=== PATIENT | female | born 1955 | race Caucasian/White ===

== ENCOUNTER 2018-08-18 19:19 | Emergency (ER) | payer OTHER ==
[~2018-08-18] VITALS: Ht 149.9 cm; Wt 59.0 kg
[~2018-08-18 19:19] MED LIST: CIPR500T4 PO; FAMO-96 PO; METR500T PO
[2018-08-18 19:32] VITALS: Ht 149.9 cm; Wt 59.0 kg
--- NOTE | 2018-08-18 21:06 | ERD ---
ER Documentation Chief Complaint Chief Complaint C/O COUGH,ST,RT EAR PAIN X1 MONTH HPI The patient is a 62-year-old female, presenting to the ER because of chronic cough nasal congestion, right ear pain for more than a month. She was seen by her physician who treated her with Augmentin that she completed about 2 weeks ago but did not feel better. She denies fever, chills, neck pain, chest pain, dyspnea, abdominal pain, vomiting, dysuria, diarrhea. She does not smoke nor drink Past medical history: Cholelithiasis Past surgical history: ROS All systems reviewed and are negative except as per history of present illness. Medications Home Meds Active Scripts Loratadine/Pseudoephedrine (CLARITIN-D 24 HOUR TABLET) 1 Each Tab.er.24h, 1 TAB PO DAILY, #15 TAB Prov:ELPIDIO MACHUCA MD 08/18/18 Fluticasone Propionate (Flonase Allergy Relief) 9.9 Ml [place].susp, 2 SPRAY NASAL DAILY, #1 BOTTLE TO EACH NOSTRIL Prov:ELPIDIO MACHUCA MD 08/18/18 Benzonatate* (Tessalon Perle*) 100 Mg Capsule, 100 MG PO TID, #15 CAP Prov:ELPIDIO MACHUCA MD 08/18/18 Famotidine* (Pepcid*) 20 Mg Tablet, 20 MG PO BID, #60 TAB Prov:ANA HERNANDEZ 06/10/18 Metronidazole* (Flagyl*) 500 Mg Tablet, 500 MG PO Q8 for 10 Days, #30 TAB Prov:ANA HERNANDEZ 06/10/18 Ciprofloxacin Hcl* (Ciprofloxacin Hcl*) 500 Mg Tablet, 500 MG PO BID@06,18 for 10 Days, #20 TAB Prov:ANA HERNANDEZ 06/10/18 Allergies Allergies: Coded Allergies: No Known Allergy (Unverified , 06/07/18) PMhx/Soc History of Surgery: Yes () Anesthesia Reaction: No Hx Neurological Disorder: No Hx Respiratory Disorders: No Hx Cardiac Disorders: No Hx Psychiatric Problems: No Hx Miscellaneous Medical Probl: No Hx Alcohol Use: No Hx Substance Use: No Hx Tobacco Use: No Physical Exam Vitals Vital Signs Date Temp Pulse Resp B/P (MAP) Pulse Ox O2 O2 Flow FiO2 Time Delivery Rate 08/18/18 99.1 82 16 134/76 99 Room Air 22:04 (95) 08/18/18 99.2 21 150/78 96 21:13 (102) 08/18/18 99.2 88 21 150/78 96 19:32 (102) Physical Exam Const: No acute distress. Head: Atraumatic. Eyes: Normal Conjunctiva. ENT: Normal External Ears, Nose and Mouth. Bilateral tympanic membranes and oropharynx are within normal limit, no facial sinus tenderness Neck: Full range of motion. No meningismus. Resp: Clear to auscultation bilaterally. Cardio: Regular rate and rhythm. Abd: Soft, non distended, normal bowel sounds, non tender. Skin: No petechiae or rashes. Back: No midline or flank tenderness. Ext: No cyanosis, or edema. Neur: Awake and alert. No focal deficit Psych: Normal Mood and Affect. Results 24 hrs Current Medications Medications Dose Sig/[place] Start Time Status Last (Trade) Ordered Route PRN Stop Time Admin Dose Reason Admin Ipratropium 0.5 mg ONCE STAT 08/18/18 Cancel [place] NEB 21:40 (Atrovent 08/18/18 21:41 0.02% (Neb)) 1.25 mg ONCE STAT 08/18/18 Cancel Levalbuterol INH 21:40 (Xopenex 08/18/18 21:41 Neb) Procedures/MDM MEDICAL MAKING DECISION: The patient is a 62-year-old female, presenting with chronic cough, probable acute allergic rhinitis, rt ear otalgia. She is stable for outpatient follow-up The differential diagnoses considered include but are not limited to asthma, reactive airway disease, postnasal drip, GERD Departure Diagnosis: Primary Impression: Otalgia of right ear Additional Impression: Allergic rhinitis Condition: Good Comments She was discharged with Tessalon, Flonase, Claritin-D 24 hours I discussed the findings with the patient. I advised the patient to follow-up with the primary physician in about 2-3 days, sooner if needed and return if any concern. Disclaimer: Inadvertent spelling and grammatical errors are likely due to EHR/dictation software use and do not reflect on the overall quality of patient care. Also, please note that the electronic time recorded on this note does not necessarily reflect the actual time of the patient encounter. ELPIDIO MACHUCA MD Aug 18, 2018 21:06
[2018-08-18] MEDS ORDERED: BENZ-6 PO (21:38)
[2018-08-18] MEDS ORDERED: FLUT9.9S NASAL (21:38)
[2018-08-18] MEDS ORDERED: LORA-777 PO (21:39)
[2018-08-18] MEDS ORDERED: IPRATROPIUM (NEB) 0.5 MG/2.5 ML AMP NEB STA (21:40)
[2018-08-18] MEDS ORDERED: LEVALBUTEROL (NEB) 1.25 MG/0.5 ML AMP INH STA (21:40)
[2018-08-18 22:04] VITALS: BP 134/76; PULSE 82; RESP 16
== END 2018-08-18 22:20 | disposition home or self-care (01) ==
LOC: E/R 19:19
DX: H92.01 Otalgia, right ear (principal); J30.9 Allergic rhinitis, unspecified
CPT/HCPCS: 76705; Z7502; 99283

== ENCOUNTER 2018-10-04 21:07 | Emergency (ER) | payer OTHER ==
[~2018-10-04] VITALS: Wt 58.6 kg
[~2018-10-04 21:07] MED LIST changes: +BENZ-6 PO; +FLUT9.9S NASAL; +LORA-777 PO
[2018-10-04 21:16] VITALS: BP 171/90; PULSE 90; RESP 22
[2018-10-04] MEDS ORDERED: IBUP-1542 PO (23:07)
[2018-10-04] MEDS ORDERED: FLUT9.9S NASAL (23:07)
[2018-10-04] MEDS ORDERED: PHEN177S43 MT (23:07)
[2018-10-04] MEDS ORDERED: BENZ200C68 PO (23:07)
[2018-10-04] MEDS ORDERED: POLY10DR19 BOTH EYES (23:07)
--- NOTE | 2018-10-05 03:31 | ERD ---
ER Documentation Chief Complaint Chief Complaint throat pain, increased eye discharge x3d HPI 62-year-old female presents to the emergency department with complaints of intermittent ear pain for the past 3 days. She took [id number]-stebwwy medication withoutSignificant relief. She is also had bilateral eye discharge and a dry cough. Symptoms are mild in severity. She denies any fevers or chills or abdominal pain or other symptoms at this time. ROS All systems reviewed and are negative except as per history of present illness. Medications Home Meds Active Scripts Ibuprofen* (Motrin*) 600 Mg Tab, 600 MG PO Q6, #30 TAB Prov:LANA MANE PA-C 10/04/18 Phenol* (Chloraseptic* [place]) 177 Ml [place].pump, 2 SPRAY MT Q2H PRN for SORE THROAT, #1 BOTTLE Prov:LANA MAEN PA-C 10/04/18 Fluticasone Propionate (Flonase Allergy Relief) 9.9 Ml [place].susp, 1 SPRAY NASAL BID, #1 BOTTLE TO EACH NOSTRIL Prov:LANA MANE PA-C 10/04/18 Benzonatate* (Benzonatate*) 200 Mg Capsule, 200 MG PO TID PRN for COUGH, #15 CAP Prov:LANA MANE PA-C 10/04/18 Polymyxin B Sulfate-TMP* (Polymyxin B-TMP Eye Drops*) 10 Ml Drops, 1 DROP BOTH EYES QID for 7 Days, #1 BOTTLE Prov:LANA MANE PA-C 10/04/18 Loratadine/Pseudoephedrine (CLARITIN-D 24 HOUR TABLET) 1 Each Tab.er.24h, 1 TAB PO DAILY, #15 TAB Prov:ELPIDIO MACHUCA MD 08/18/18 Fluticasone Propionate (Flonase Allergy Relief) 9.9 Ml [place].susp, 2 SPRAY NASAL DAILY, #1 BOTTLE TO EACH NOSTRIL Prov:ELPIDIO MACHUCA MD 08/18/18 Benzonatate* (Tessalon Perle*) 100 Mg Capsule, 100 MG PO TID, #15 CAP Prov:ELPIDIO MACHUCA MD 08/18/18 Famotidine* (Pepcid*) 20 Mg Tablet, 20 MG PO BID, #60 TAB Prov:ANA HERNANDEZ 06/10/18 Metronidazole* (Flagyl*) 500 Mg Tablet, 500 MG PO Q8 for 10 Days, #30 TAB Prov:ANA HERNANDEZ 06/10/18 Ciprofloxacin Hcl* (Ciprofloxacin Hcl*) 500 Mg Tablet, 500 MG PO BID@06,18 for 10 Days, #20 TAB Prov:ANA HERNANDEZ 06/10/18 Allergies Allergies: Coded Allergies: No Known Allergy (Unverified , 06/07/18) PMhx/Soc History of Surgery: Yes () Anesthesia Reaction: No Hx Neurological Disorder: No Hx Respiratory Disorders: No Hx Cardiac Disorders: No Hx Psychiatric Problems: No Hx Miscellaneous Medical Probl: No Hx Alcohol Use: No Hx Substance Use: No Hx Tobacco Use: No Smoking Status: Never smoker FmHx Family History: No diabetes Physical Exam Vitals Vital Signs Date Temp Pulse Resp B/P (MAP) Pulse Ox O2 O2 Flow FiO2 Time Delivery Rate 10/04/18 99.4 90 22 171/90 97 21:16 (117) Physical Exam Const: No acute distress Head: Atraumatic Eyes: Mild conjunctival injection. Dried discharge noted to the eyelashes bilaterally. Extraocular movements intact bilaterally. ENT: Normal External Ears, Nose and Mouth. Tympanic membranes are normal in appearance bilaterally. Posterior pharynx is clear. Uvula is midline. Airway is patent. Nares are congested. Neck: Full range of motion. No meningismus. Resp: Clear to auscultation bilaterally Cardio: Regular rate and rhythm, no murmurs Abd: Soft, non tender, non distended. Normal bowel sounds Skin: No petechiae or rashes Ext: No cyanosis, or edema Neur: Awake and alert Psych: Normal Mood and Affect Procedures/MDM 62-year-old female presents to the emergency department with signs and symptoms most consistent with acute URI, likely viral etiology as well as acute c onjunctivitis, likely bacterial etiology. No evidence of preseptal cellulitis or periorbital cellulitis. Patient is nontoxic and afebrile and well-appearing and she is appropriate for discharge and further outpatient management with prescriptions. History and physical and other data is not consistent with emergent process such as pneumonia, CHF, anaphylaxis, severe RAD or PE. patient was given strict return precautions prior to discharge and she was in agreement. Patient's blood pressure was elevated (>120/80) but appears stable without evidence of hypertension emergency or urgency. The patient is to follow-up and pursue outpatient monitoring and therapy with their primary care physician within 1 week and return immediately if they have any new, worsening, or concerning symptoms. Disclaimer: Inadvertent spelling and grammatical errors are likely due to EHR/dictation software use and do not reflect on the overall quality of patient care. Also, please note that the electronic time recorded on this note does not necessarily reflect the actual time of the patient encounter. Departure Diagnosis: Primary Impression: Common cold Additional Impression: Conjunctivitis Condition: Fair Patient Instructions: Adult Self-Care for Colds, Conjunctivitis Caused by Inf ection Additional Instructions: Llame al doctor MAANA y kofi crista ROSEANNA PARA DENTRO DE 1-2 HERNANDEZ.Dgale a la secretaria que nosotros le instruimos hacer esta roseanna.Avise o llame si ramirez condicin se empeora antes de la roseanna. Regresa aqui si peor o no mejor. LANA MANE PA-C October 05, 2018 03:31
== END 2018-10-04 23:39 | disposition home or self-care (01) ==
LOC: FTE 21:07
DX: H10.9 Unspecified conjunctivitis (principal); J00 Acute nasopharyngitis [common cold]
CPT/HCPCS: 99283

== ENCOUNTER 2018-11-08 11:56 | Inpatient (IN) | payer OTHER ==
[~2018-11-08] VITALS: Ht 157.5 cm; Wt 57.0 kg
[~2018-11-08 11:56] MED LIST changes: +BENZ200C68 PO; +IBUP-1542 PO; +PHEN177S43 MT; +POLY10DR19 BOTH EYES
[2018-11-08 12:36] VITALS: Ht 157.5 cm; Wt 57.0 kg
[2018-11-08] MEDS ORDERED: ONDANSETRON 4 MG INJ IV STA (12:50)
[2018-11-08] MEDS ORDERED: SODIUM CHLORIDE 0.9% 1L BAG IV* STA (12:50)
[2018-11-08] MEDS ORDERED: IBUPROFEN 600 MG TAB PO ONE (13:00)
--- NOTE | 2018-11-08 13:07 | ERD ---
ER Documentation Chief Complaint Chief Complaint gallbladder sx 11/02/2018, now w fever, chills, dizziness HPI This is a 62-year-old woman status post cholecystectomy about a week ago presents with fever and chills today, feels a bit dizzy and generally weak. She denies cough or abdominal pain, no chest pain, no dysuria, no vomiting or diarrhea, no blood per rectum or melena. ROS All systems reviewed and are negative except as per history of present illness. Medications Home Meds Discontinued Scripts Ibuprofen* (Motrin*) 600 Mg Tab, 600 MG PO Q6, #30 TAB Prov:LANA MANE PA-C 10/04/18 Phenol* (Chloraseptic* [place]) 177 Ml [place].pump, 2 SPRAY MT Q2H PRN for SORE THROAT, #1 BOTTLE Prov:LANA MANE PA-C 10/04/18 Fluticasone Propionate (Flonase Allergy Relief) 9.9 Ml [place].susp, 1 SPRAY NASAL BID, #1 BOTTLE TO EACH NOSTRIL Prov:LANA MANE PA-C 10/04/18 Benzonatate* (Benzonatate*) 200 Mg Capsule, 200 MG PO TID PRN for COUGH, #15 CAP Prov:LANA MANE PA-C 10/04/18 Polymyxin B Sulfate-TMP* (Polymyxin B-TMP Eye Drops*) 10 Ml Drops, 1 DROP BOTH E YES QID for 7 Days, #1 BOTTLE Prov:LANA MANE PA-C 10/04/18 Loratadine/Pseudoephedrine (CLARITIN-D 24 HOUR TABLET) 1 Each Tab.er.24h, 1 TAB PO DAILY, #15 TAB Prov:ELPIDIO MACHUCA MD 08/18/18 Fluticasone Propionate (Flonase Allergy Relief) 9.9 Ml [place].susp, 2 SPRAY NASAL DAILY, #1 BOTTLE TO EACH NOSTRIL Prov:ELPIDIO MACHUCA MD 08/18/18 Benzonatate* (Tessalon Perle*) 100 Mg Capsule, 100 MG PO TID, #15 CAP Prov:ELPIDIO MACHUCA MD 08/18/18 Famotidine* (Pepcid*) 20 Mg Tablet, 20 MG PO BID, #60 TAB Prov:ANA HERNANDEZ 06/10/18 Metronidazole* (Flagyl*) 500 Mg Tablet, 500 MG PO Q8 for 10 Days, #30 TAB Prov:ANA HERNANDEZ 06/10/18 Ciprofloxacin Hcl* (Ciprofloxacin Hcl*) 500 Mg Tablet, 500 MG PO BID@06,18 for 10 Days, #20 TAB Prov:ANA HERNANDEZ 06/10/18 Allergies Allergies: Coded Allergies: No Known Allergy (Unverified , 11/08/18) PMhx/Soc HTN History of Surgery: Yes () Anesthesia Reaction: No Hx Neurological Disorder: No Hx Respiratory Disorders: No Hx Cardiac Disorders: No Hx Psychiatric Problems: No Hx Miscellaneous Medical Probl: Yes (GALL STONES) Hx Alcohol Use: No Hx Substance Use: No Hx Tobacco Use: No FmHx Family History: No diabetes Physical Exam Vitals Vital Signs Date Temp Pulse Resp B/P (MAP) Pulse Ox O2 O2 Flow FiO2 Time Delivery Rate 11/08/18 98.4 92 20 112/53 96 Room Air 15:49 (72) 11/08/18 99.3 95 20 105/61 98 Room Air 14:41 (76) 11/08/18 97 18 115/68 95 Room Air 14:05 (84) 11/08/18 100.1 13:43 11/08/18 101.5 13:12 11/08/18 101.5 120 20 116/62 93 12:36 (80) Physical Exam GENERAL: Well-developed, well-nourished, well-hydrated, febrile HEENT: Moist mucous membranes, pink conjunctiva, no cervical spine tenderness or step-off deformities, no goiter, no jaundice or icterus, extraocular movements intact without pain. No submandibular induration, and no pharyngeal erythema NEURO: Alert and oriented 3, cranial nerves II through XII intact bilaterally, pupils equal round reactive to light, no focal deficits or facial asymmetry, sensation intact distally Strength 5/5 in upper and lower extremities bilaterally CARDIAC: Tachycardic no murmurs rubs or gallops LUNGS: Clear bilaterally no wheezing crackles or stridor ABDOMEN: Soft nontender, no guarding, no rigidity, no rebound, no psoas sign no obturator sign, CHARLENE drain is in place there is no surrounding soft tissue erythema or purulent discharge around the drain site SKIN: Warm and dry to touch, no abrasions, contusions, or hematomas, no lacerations, no ecchymosis, no target lesions, and without ulcers Result Diagram: 11/08/18 1302 11/08/18 1302 Results 24 hrs Laboratory Tests Test 11/08/18 12:59 11/08/18 13:02 11/08/18 13:04 11/08/18 15:49 Free Thyroxine 1.63 ng/dl White Blood Count 17.9 10^3/ul Red Blood Count 4.61 10^6/ul Hemoglobin 13.4 g/dl Hematocrit 38.3 % Mean Corpuscular 83.1 fl Volume Mean Corpuscular 29.1 pg Hemoglobin Mean Corpuscular 35.0 g/dl Hemoglobin Concent Red Cell Distribution 13.1 % Width Platelet Count 221 10^3/UL Mean Platelet Volume 9.7 fl Immature Granulocytes 0.400 % % Neutrophils % 91.7 % Lymphocytes % 3.7 % Monocytes % 4.0 % Eosinophils % 0.0 % Basophils % 0.2 % Nucleated Red Blood 0.0 /100WBC Cells % Immature Granulocytes 0.070 10^3/ul # Neutrophils # 16.4 10^3/ul Lymphocytes # 0.7 10^3/ul Monocytes # 0.7 10^3/ul Eosinophils # 0.0 10^3/ul Basophils # 0.0 10^3/ul Nucleated Red Blood 0.0 10^3/ul Cells # Prothrombin Time 12.8 Sec Prothrombin Time 1.0 Ratio INR International 0.95 Normalized Ratio Activated 29.2 Sec Partial Thromboplast Time Urine Color YELLOW Urine Clarity CLEAR Urine pH 6.0 Urine Specific 1.024 [place] Urine Ketones NEGATIVE mg/dL Urine Nitrite NEGATIVE mg/dL Urine Bilirubin NEGATIVE mg/dL Urine Urobilinogen 1+ mg/dL Urine Leukocyte TRACE [place]/ul Esterase Urine Microscopic RBC 5 /HPF Urine Microscopic WBC 1 /HPF Urine Squamous FEW /HPF Epithelial Cells Urine Bacteria FEW /HPF Urine Mucus FEW /HPF Urine Hemoglobin 1+ mg/dL Urine Glucose NEGATIVE mg/dL Urine Total Protein NEGATIVE mg/dl Sodium Level 137 mmol/L Potassium Level 4.1 mmol/L Chloride Level 102 mmol/L Carbon Dioxide Level 22 mmol/L Anion Gap 13 Blood Urea Nitrogen 16 mg/dl Creatinine 0.71 mg/dl Est Glomerular > 60 mL/min Filtrat Rate mL/min Glucose Level 139 mg/dl Calcium Level 9.7 mg/dl Total Bilirubin 0.9 mg/dl Direct Bilirubin 0.00 mg/dl Indirect Bilirubin 0.9 mg/dl Aspartate Amino 43 IU/L Transf (AST/SGOT) Alanine 75 IU/L Aminotransferase (ALT /SGPT) Alkaline Phosphatase 145 IU/L Troponin I < 0.012 ng/ml Total Protein 8.0 g/dl Albumin 4.4 g/dl Globulin 3.60 g/dl Albumin/Globulin 1.22 Ratio Lipase 71 U/L POC Venous Lactate 1.7 mmol/L Lactic Acid Level 1.0 mmol/L Current Medications Medications Dose Sig/B[place] Start Time Status Last (Trade) Ordered Route PRN Stop Time Admin Dose Reason Admin Sodium 2,000 ml BOLUS OVER 2 11/08/18 DC 11/08/18 Chloride HOURS STAT 12:50 11/08/18 13:13 (NS) IV* 12:51 Ondansetron 4 mg ONCE STAT 11/08/18 DC 11/08/18 HCl (Zofran IV 12:50 11/08/18 13:13 Inj) 12:51 Ibuprofen 600 mg ONCE ONCE 11/08/18 DC 11/08/18 (Motrin) PO 13:00 11/08/18 13:12 13:01 Ceftriaxone 50 ml @ ONCE ONCE 11/08/18 DC 11/08/18 Sodium 100 mls/hr IVPB 13:30 11/08/18 13:13 13:59 Azithromycin 250 ml @ ONCE ONCE 11/08/18 DC 11/08/18 250 mls/hr IVPB 14:00 11/08/18 13:46 14:59 IV Flush 3 ml PER 11/08/18 (NS 3 ml) PROTOCOL IV 15:00 Ondansetron 4 mg Q6H PRN 11/08/18 HCl (Zofran IV 15:00 Inj) NAUSEA/VOMITI NG 650 mg Q6H PRN 11/08/18 Acetaminophen PO .PAIN 1-3 15:00 (Tylenol OR TEMP Tab) 1 tab Q6H PRN 11/08/18 Acetaminophen PO .MOD PAIN 15:00 / 4-6 Hydrocodone Bitart ([place] (5/325)) Morphine 2 mg Q4H PRN 11/08/18 Sulfate IV .SEVERE 15:00 (morphine) PAIN 7-10 Docusate 100 mg Q12H PRN 7/3/19 Sodium PO 15:00 (Colace) .CONSTIPATION Magnesium 30 ml DAILY PRN 11/08/18 Hydroxide PO 15:00 (Milk Of Mag) .CONSTIPATION Lorazepam 0.5 mg Q6H PRN 11/08/18 (Ativan) IV ANXIETY 15:00 Albuterol/ 3 ml Q4H RESP 11/08/18 Ipratropium THERAPY PRN 15:00 (Duoneb) HHN SHORTNESS OF BREATH 1 tab Q5M PRN 11/08/18 Nitroglycerin SL ANGINA 15:00 (Nitroglyceri n (Sl Tab) 0.4 Mg) Cefepime HCl 50 ml @ Q12 IVPB 11/08/18 UNV 100 mls/hr 21:00 Heparin 5,000 unit BID SC 11/08/18 Sodium 21:00 (Porcine) (Heparin (5000 Units/1ml)) Procedures/MDM IV line was established patient was placed on bus monitor rhythm strip revealed a narrow complex tachycardia at 120 bpm with upright P and T waves. Patient was febrile, blood and urine cultures have been ordered results are pending I will follow-up. EKG performed, read by me revealed a sinus tachycardia at 115 bpm, normal axis, narrow QRS complex, no concerning ST elevations or depressions noted. Chest X-ray 1V Interpreted by me: Soft Tissue: No acute abnormalities Bones: No acute abnormalities Mediastinum/Cardiac Silhouette/Lungs: Right lower lobe infiltrate I administered 2 L normal saline IV, ibuprofen 600 mg p.o., Zofran 4 mg IV, ceft riaxone 1 g IV and azithromycin 500 mg IV CBC revealed a leukocytosis of 18, electrolytes were normal, liver function tests normal, troponin negative, urinalysis negative. Lactic acid levels were low. I do not suspect sepsis or septic shock. Patient will be admitted to [facility] for pneumonia Departure Diagnosis: Primary Impression: Pneumonia Pneumonia type: due to unspecified organism Laterality: right Lung location: lower lobe of lung Qualified Codes: J18.1 - Lobar pneumonia, unspecified organism Condition: ANA Willoughby MD Nov 08, 2018 13:07
[2018-11-08] MEDS ORDERED: CEFTRIAXONE 1 GM/50 ML (PMX) 50 ML IVPB ONE (13:30)
[2018-11-08] MEDS ORDERED: AZITHROMYCIN 500MG/NS (PMX) 250 ML IVPB ONE (14:00)
[2018-11-08] MEDS ORDERED: DOCUSATE SODIUM 100 MG CAP PO PRN (15:00)
[2018-11-08] MEDS ORDERED: morphine 2 MG INJ IV PRN (15:00)
[2018-11-08] MEDS ORDERED: NACL 0.9% 3 ML SYG IV SCH (15:00)
[2018-11-08] MEDS ORDERED: ONDANSETRON 4 MG INJ IV PRN (15:00)
[2018-11-08] MEDS ORDERED: LORAZEPAM 2 MG INJ IV PRN (15:00)
[2018-11-08] MEDS ORDERED: ALBUTEROL/IPRATROPIUM (NEB) 3 ML AMP HHN PRN (15:00)
[2018-11-08] MEDS ORDERED: HYDROCODONE/APAP (5/325) TAB PO PRN (15:00)
[2018-11-08] MEDS ORDERED: MAGNESIUM HYDROXIDE 30ML CUP PO PRN (15:00)
[2018-11-08] MEDS ORDERED: NITROGLYCERIN (SL) 0.4 MG TAB SL PRN (15:00)
--- NOTE | 2018-11-08 15:51 | HP ---
Date/Time of Note Date/Time of Note DATE: 11/08/18 TIME: 15:51 Assessment/Plan VTE Prophylaxis SCD applied (from Nsg): No SCD contraindicated: other Pharmacological prophylaxis: heparin Lines/Catheters IV Catheter Type (from Nrsg): [place] Assessment/Plan Hospital Course Assessment and plan: 62-year-old female history of gallstones with a history of laparoscopic cholecystectomy November 02 in [place], who presents with dizziness and fevers, with signs of possible right-sided pneumonia. #Dizziness and fevers: Again her chest x-ray does show signs of right-sided infiltrates, possible pneumonia -We will place the patient on IV fluids, check TSH, A1c, lipid panel, broad- spectrum minimize, Tylenol PRN pain fevers -Follow-up final culture results -Given the fact patient had a recent cholecystectomy and has CHARLENE drain in place, will go and check CT abdomen pelvis to rule out any anterior source of p ossible infection or other, and monitor drainage from the CHARLENE -Consider wound nurse consult as well. -May also have to try to obtain the medical records from the outside hospital where the lap keenan was recently performed Result Diagram: 11/08/18 1302 11/08/18 1302 Results 24hrs Laboratory Tests Test 11/08/18 12:59 11/08/18 13:02 11/08/18 13:04 Free Thyroxine 1.63 White Blood Count 17.9 #H Red Blood Count 4.61 Hemoglobin 13.4 Hematocrit 38.3 Mean Corpuscular Volume 83.1 Mean Corpuscular Hemoglobin 29.1 Mean Corpuscular Hemoglobin Concent 35.0 Red Cell Distribution Width 13.1 Platelet Count 221 Mean Platelet Volume 9.7 Immature Granulocytes % 0.400 Neutrophils % 91.7 H Lymphocytes % 3.7 L Monocytes % 4.0 Eosinophils % 0.0 Basophils % 0.2 Nucleated Red Blood Cells % 0.0 Immature Granulocytes # 0.070 H Neutrophils # 16.4 H Lymphocytes # 0.7 L Monocytes # 0.7 Eosinophils # 0.0 Basophils # 0.0 Nucleated Red Blood Cells # 0.0 Prothrombin Time 12.8 Prothrombin Time Ratio 1.0 INR International Normalized Ratio 0.95 Activated Partial Thromboplast Time 29.2 Urine Color YELLOW Urine Clarity CLEAR Urine pH 6.0 Urine Specific [place] 1.024 Urine Ketones NEGATIVE Urine Nitrite NEGATIVE Urine Bilirubin NEGATIVE Urine Urobilinogen 1+ H Urine Leukocyte Esterase TRACE A Urine Microscopic RBC 5 Urine Microscopic WBC 1 Urine Squamous Epithelial Cells FEW Urine Bacteria FEW A Urine Mucus FEW A Urine Hemoglobin 1+ H Urine Glucose NEGATIVE Urine Total Protein NEGATIVE Sodium Level 137 Potassium Level 4.1 Chloride Level 102 Carbon Dioxide Level 22 Anion Gap 13 Blood Urea Nitrogen 16 Creatinine 0.71 Est Glomerular Filtrat Rate mL/min > 60 Glucose Level 139 Calcium Level 9.7 Total Bilirubin 0.9 Direct Bilirubin 0.00 Indirect Bilirubin 0.9 Aspartate Amino Transf (AST/SGOT) 43 Alanine Aminotransferase (ALT/SGPT) 75 H Alkaline Phosphatase 145 H Troponin I < 0.012 Total Protein 8.0 Albumin 4.4 Globulin 3.60 H Albumin/Globulin Ratio 1.22 Lipase 71 POC Venous Lactate 1.7 HPI/ROS Admit Date/Time Admit Date/Time Hx of Present Illness 62-year-old female history of gallstones with a history of laparoscopic cholecystectomy November 02 in [place], who is been having dizziness and fever symptoms. Patient states his symptoms began last night. She is had some subjective fevers at home and also some chills. No upper or lower GI bleeding, nausea vomiting, diarrhea constipation, chest pain. Again apparently she had a laparoscopic cholecystectomy performed at outside hospital on November 02, 2018, she does not remember the name of the surgeon who performed the surgery. She has not had a follow-up appointment at that time. She denies any significant drainage or pus or pain in the abdominal area or around the incision sites. However when she came in today she was found temperature 101.5. Chest x-ray was performed that showed signs of right-sided infiltrate, possible pneumonia and she is been given antibiotics in the ER today. PMH/Family/Social Past Medical History Medications Current Medications IV Flush (NS 3 ml) 3 ml PER PROTOCOL IV ; Start 11/08/18 at 15:00 Ondansetron HCl (Zofran Inj) 4 mg Q6H PRN IV NAUSEA/VOMITING; Start 11/08/18 at 15:00 Acetaminophen (Tylenol Tab) 650 mg Q6H PRN PO .PAIN 1-3 OR TEMP; Start 11/08/18 at 15:00 Acetaminophen/ Hydrocodone Bitart ([place] (5/325)) 1 tab Q6H PRN PO .MOD PAIN 4- 6; Start 11/08/18 at 15:00 Morphine Sulfate (morphine) 2 mg Q4H PRN IV .SEVERE PAIN 7-10; Start 11/08/18 at 15:00 Docusate Sodium (Colace) 100 mg Q12H PRN PO .CONSTIPATION; Start 11/08/18 at 15:00 Magnesium Hydroxide (Milk Of Mag) 30 ml DAILY PRN PO .CONSTIPATION; Start at 15:00 Lorazepam (Ativan) 0.5 mg Q6H PRN IV ANXIETY; Start 11/08/18 at 15:00 Albuterol/ Ipratropium (Duoneb) 3 ml Q4H RESP THERAPY PRN HHN SHORTNESS OF BREATH; Start 11/08/18 at 15:00 Nitroglycerin (Nitroglycerin (Sl Tab) 0.4 Mg) 1 tab Q5M PRN SL ANGINA; Start 11/08/18 at 15:00 Cefepime HCl 50 ml @ 100 mls/hr Q12 IVPB ; Start 11/08/18 at 21:00; Status UNV Heparin Sodium (Porcine) (Heparin (5000 Units/1ml)) 5,000 unit BID SC ; Start 11/08/18 at 21:00 Coded Allergies: No Known Allergy (Unverified , 11/08/18) Past Surgical History Past Surgical Hx: other (Recent laparoscopic cholecystectomy 6 days ago outside hospital) Family History Significant Family History: no pertinent family hx Social History Alcohol Use: none Smoking Status: Never smoker Drug Use: none Exam/Review of Systems Vital Signs Vitals Vital Signs Date Temp Pulse Resp B/P (MAP) Pulse Ox O2 O2 Flow FiO2 Time Delivery Rate 11/08/18 99.3 95 20 105/61 98 Room Air 14:41 (76) Exam Exam GENERAL: Lying in bed, no acute distress HEENT: Pupils equal, round, and reactive to light. EOMI. There is no scleral icterus. NECK: Supple LUNGS: Clear to auscultation bilaterally. There are no rales, wheezes or rhonchi. HEART: Regular rate and rhythm, no murmurs, clicks, rubs or gallops. ABDOMEN: Soft, non-tender, non-distended. Right upper quadrant CHARLENE drain in place with minimal drainage, incision sites covered with bandages, no leakage through the bandage sites EXTREMITIES: There is no peripheral cyanosis or edema. No focal swelling or erythema. NEURO: Cranial nerves II - XII are intact. Normal gait. Alert and oriented FABIENNE VILLAVICENCIO Nov 08, 2018 15:51
[2018-11-08 20:00] VITALS: BP 108/56; PULSE 83; RESP 17
[2018-11-08] MEDS: ACETAMINOPHEN 325 MG TAB PO PRN (20:14)
[2018-11-08] MEDS: HEPARIN 5,000 UNIT/1 ML VIAL SC SCH (20:21)
[2018-11-08] MEDS: CEFEPIME 1GM/50 ML (PMX) 50 ML IVPB SCH (22:23)
[2018-11-09 02:00] VITALS: BP 104/55; PULSE 91; RESP 18
[2018-11-09] MEDS: ACETAMINOPHEN 325 MG TAB PO PRN ×3 (02:10→20:34)
[2018-11-09 08:12] VITALS: BP 103/51; PULSE 95; RESP 18
[2018-11-09] MEDS: HEPARIN 5,000 UNIT/1 ML VIAL SC SCH ×2 (09:34→20:27)
[2018-11-09 14:50] VITALS: BP 126/61; PULSE 104; RESP 18
--- NOTE | 2018-11-09 15:14 | PN ---
Date/Time of Note Date/Time of Note DATE: 11/09/18 TIME: 15:01 Assessment/Plan VTE Prophylaxis Risk score (from Ns)>0 risk: 3 SCD applied (from Ns): No SCD contraindicated: other Pharmacological prophylaxis: heparin Lines/Catheters IV C[facility]ter Type (from [facility]): Peripheral IV Assessment/Plan Hospital Course S: Patient has less abdominal pain today. She did have low-grade temperature overnight. CT scan abdomen pelvis results reviewed. O: VS - see below PE: GENERAL: Lying in bed, no acute distress HEENT: Pupils equal, round, and reactive to light. EOMI. There is no scleral icterus. NECK: Supple LUNGS: Clear to auscultation bilaterally. There are no rales, wheezes or rhonchi. HEART: Regular rate and rhythm, no murmurs, clicks, rubs or gallops. ABDOMEN: Soft, non-tender, non-distended. Right upper quadrant CHARLENE drain in place with minimal drainage, incision sites covered with bandages, no leakage through the bandage sites EXTREMITIES: There is no peripheral cyanosis or edema. No focal swelling or erythema. NEURO: Cranial nerves II - XII are intact. No focal deficits Assessment and plan: 62-year-old female history of gallstones with a history of laparoscopic cholecystectomy November 02 in [place], who presents with dizziness and fevers, with signs of possible right-sided pneumonia. #Dizziness and fevers: Again her chest x-ray does show signs of right-sided infiltrates, secondary to pneumonia. White blood cell count still elevated but trending down. -Continue IV fluids, broad-spectrum antibiotics, Tylenol PRN pain fevers. -Follow-up final culture results -Patient apparently has outpatient appointment in 24 hours to have the stella and CHARLENE drain removed, she should follow-up with them for care of this CHARLENE drain. Again she had lap scopic cholecystectomy performed at a [facility] about a week ago with drain still in place. Result Diagram: 11/09/18 0651 11/09/18 0651 Results 24hrs Laboratory Tests Test 11/08/18 15:49 11/08/18 19:33 11/09/18 06:51 Lactic Acid Level 1.0 1.1 White Blood Count 12.6 #H Red Blood Count 3.96 L Hemoglobin 11.3 L Hematocrit 33.6 L Mean Corpuscular Volume 84.8 Mean Corpuscular Hemoglobin 28.5 L Mean Corpuscular Hemoglobin Concent 33.6 Red Cell Distribution Width 13.4 Platelet Count 200 Mean Platelet Volume 10.1 Immature Granulocytes % 0.600 H Neutrophils % 87.8 H Lymphocytes % 6.5 L Monocytes % 4.7 Eosinophils % 0.2 Basophils % 0.2 Nucleated Red Blood Cells % 0.0 Immature Granulocytes # 0.070 H Neutrophils # 11.1 H Lymphocytes # 0.8 Monocytes # 0.6 Eosinophils # 0.0 Basophils # 0.0 Nucleated Red Blood Cells # 0.0 Sodium Level 142 Potassium Level 4.4 Chloride Level 110 Carbon Dioxide Level 24 Anion Gap 8 Blood Urea Nitrogen 14 Creatinine 0.70 Est Glomerular Filtrat Rate mL/min > 60 Glucose Level 90 # Hemoglobin A1c 5.1 Calcium Level 8.6 Total Bilirubin 1.0 Direct Bilirubin 0.00 Indirect Bilirubin 1.0 Aspartate Amino Transf (AST/SGOT) 37 Alanine Aminotransferase (ALT/SGPT) 64 Alkaline Phosphatase 141 H Total Protein 6.7 # Albumin 3.5 Triglycerides Level 95 Cholesterol Level 135 LDL Cholesterol, Calculated 76 HDL Cholesterol 40 Cholesterol/HDL Ratio 3.3 Thyroid Stimulating Hormone (TSH) 0.594 Exam/Review of Systems Exam Vitals Vital Signs Date Temp Pulse Resp B/P (MAP) Pulse Ox O2 O2 Flow FiO2 Time Delivery Rate 11/09/18 99.5 104 18 126/61 98 Room Air 14:50 (82) Intake and Output 11/08/18 11/08/18 11/09/18 1515:00 23:00 07:00 IntakeIntake Total 50 ml BalanceBalance 50 ml Results Results 24hrs Laboratory Tests Test 11/08/18 15:49 11/08/18 19:33 11/09/18 06:51 Lactic Acid Level 1.0 1.1 White Blood Count 12.6 #H Red Blood Count 3.96 L Hemoglobin 11.3 L Hematocrit 33.6 L Mean Corpuscular Volume 84.8 Mean Corpuscular Hemoglobin 28.5 L Mean Corpuscular Hemoglobin Concent 33.6 Red Cell Distribution Width 13.4 Platelet Count 200 Mean Platelet Volume 10.1 Immature Granulocytes % 0.600 H Neutrophils % 87.8 H Lymphocytes % 6.5 L Monocytes % 4.7 Eosinophils % 0.2 Basophils % 0.2 Nucleated Red Blood Cells % 0.0 Immature Granulocytes # 0.070 H Neutrophils # 11.1 H Lymphocytes # 0.8 Monocytes # 0.6 Eosinophils # 0.0 Basophils # 0.0 Nucleated Red Blood Cells # 0.0 Sodium Level 142 Potassium Level 4.4 Chloride Level 110 Carbon Dioxide Level 24 Anion Gap 8 Blood Urea Nitrogen 14 Creatinine 0.70 Est Glomerular Filtrat Rate mL/min > 60 Glucose Level 90 # Hemoglobin A1c 5.1 Calcium Level 8.6 Total Bilirubin 1.0 Direct Bilirubin 0.00 Indirect Bilirubin 1.0 Aspartate Amino Transf (AST/SGOT) 37 Alanine Aminotransferase (ALT/SGPT) 64 Alkaline Phosphatase 141 H Total Protein 6.7 # Albumin 3.5 Triglycerides Level 95 Cholesterol Level 135 LDL Cholesterol, Calculated 76 HDL Cholesterol 40 Cholesterol/HDL Ratio 3.3 Thyroid Stimulating Hormone (TSH) 0.594 Medications Medication Current Medications IV Flush (NS 3 ml) 3 ml PER PROTOCOL IV ; Start 11/08/18 at 15:00 Ondansetron HCl (Zofran Inj) 4 mg Q6H PRN IV NAUSEA/VOMITING; Start 11/08/18 at 15:00 Acetaminophen (Tylenol Tab) 650 mg Q6H PRN PO .PAIN 1-3 OR TEMP Last administered on 11/09/18at 08:14; Admin Dose 650 MG; Start 11/08/18 at 15:00 Acetaminophen/ Hydrocodone Bitart ([place] (5/325)) 1 tab Q6H PRN PO .MOD PAIN 4- 6; Start 11/08/18 at 15:00 Morphine Sulfate (morphine) 2 mg Q4H PRN IV .SEVERE PAIN 7-10; Start 11/08/18 at 15:00 Docusate Sodium (Colace) 100 mg Q12H PRN PO .CONSTIPATION; Start 11/08/18 at 15:00 Magnesium Hydroxide (Milk Of Mag) 30 ml DAILY PRN PO .CONSTIPATION; Start 11/08/18 at 15:00 Lorazepam (Ativan) 0.5 mg Q6H PRN IV ANXIETY; Start 11/08/18 at 15:00 Albuterol/ Ipratropium (Duoneb) 3 ml Q4H RESP THERAPY PRN HHN SHORTNESS OF BREATH; Start 11/08/18 at 15:00 Nitroglycerin (Nitroglycerin (Sl Tab) 0.4 Mg) 1 tab Q5M PRN SL ANGINA; Start 11/08/18 at 15:00 Cefepime HCl 50 ml @ 100 mls/hr Q24H IVPB Last administered on 11/08/18at 22:23; Admin Dose 100 MLS/HR; Start 11/08/18 at 21:00 Heparin Sodium (Porcine) (Heparin (5000 Units/1ml)) 5,000 unit BID SC Last a dministered on 11/09/18at 09:34; Admin Dose 5,000 UNIT; Start 11/08/18 at 21:00 Miscellaneous Information Patients own medicat... BID@10,16 XX ; Start 11/09/18 at 10:00 FABIENNE VILLAVICENCIO Nov 09, 2018 15:14
[2018-11-09] MEDS: SOD CHLORIDE 0.45% 1,000 ML IV SCH (15:32)
[2018-11-09 20:00] VITALS: BP 120/60; PULSE 100; RESP 18
[2018-11-09] MEDS: CEFEPIME 1GM/50 ML (PMX) 50 ML IVPB SCH (20:27)
[2018-11-10] MEDS: SOD CHLORIDE 0.45% 1,000 ML IV SCH ×3 (00:41→20:15)
[2018-11-10 02:00] VITALS: BP 110/56; PULSE 80; RESP 17
[2018-11-10 07:47] VITALS: BP 115/59; PULSE 85; RESP 18
[2018-11-10] MEDS: HEPARIN 5,000 UNIT/1 ML VIAL SC SCH ×2 (09:35→20:14)
--- NOTE | 2018-11-10 11:52 | PN ---
Date/Time of Note Date/Time of Note DATE: 11/10/18 TIME: 11:50 Assessment/Plan VTE Prophylaxis Risk score (from Ns)>0 risk: 3 [place] [facility] [place] contraindicated: other Pharmacological prophylaxis: heparin Lines/Catheters IV [facility] Type (from [facility]): Peripheral IV Assessment/Plan Hospital Course S: Patient had temperature overnight 100.3. White blood cell counts of elevated today. O: VS - see below PE: GENERAL: Lying in bed, no acute distress HEENT: Pupils equal, round, and reactive to light. EOMI. There is no scleral icterus. NECK: Supple LUNGS: Clear to auscultation bilaterally. There are no rales, wheezes or rhonchi. HEART: Regular rate and rhythm, no murmurs, clicks, rubs or gallops. ABDOMEN: Soft, non-tender, non-distended. Right upper quadrant CHARLENE drain in place with minimal drainage, incision sites covered with bandages, no leakage through the bandage sites EXTREMITIES: There is no peripheral cyanosis or edema. No focal swelling or erythema. NEURO: Cranial nerves II - XII are intact. No focal deficits Assessment and plan: 62-year-old female history of gallstones with a history of laparoscopic cholecystectomy November 02 in [place], who presents with dizziness and fevers, with signs of possible right-sided pneumonia. #Dizziness and fevers: Slowly improving but fever still present in the last 24 hours. Admitting chest x-ray showed signs of right-sided infiltrates, secondary to pneumonia. White blood cell count still elevated but trending down. -Continue IV fluids, broad-spectrum antibiotics, Tylenol PRN pain fevers. -Follow-up final culture results #Recent cholecystectomy: Performed 1 week ago in [place]. No present issues, CHARLENE drain still in place. -Monitor, patient will need to reschedule her outpatient appointment to have the stella and CHARLENE drain removed, she should follow-up with them for care of this CHARLENE drain. Result Diagram: 11/10/18 0531 11/10/18 0531 Results 24hrs Laboratory Tests Test 11/10/18 05:31 White Blood Count 11.6 H Red Blood Count 3.90 L Hemoglobin 11.5 L Hematocrit 33.1 L Mean Corpuscular Volume 84.9 Mean Corpuscular Hemoglobin 29.5 Mean Corpuscular Hemoglobin Concent 34.7 Red Cell Distribution Width 13.2 Platelet Count 227 Mean Platelet Volume 9.9 Immature Granulocytes % 0.400 Neutrophils % 88.4 H Lymphocytes % 6.7 L Monocytes % 4.1 Eosinophils % 0.2 Basophils % 0.2 Nucleated Red Blood Cells % 0.0 Immature Granulocytes # 0.050 H Neutrophils # 10.2 H Lymphocytes # 0.8 Monocytes # 0.5 Eosinophils # 0.0 Basophils # 0.0 Nucleated Red Blood Cells # 0.0 Sodium Level 140 Potassium Level 4.1 Chloride Level 106 Carbon Dioxide Level 26 Anion Gap 8 Blood Urea Nitrogen 10 Creatinine 0.69 Est Glomerular Filtrat Rate mL/min > 60 Glucose Level 128 Calcium Level 8.9 Exam/Review of Systems Exam Vitals Vital Signs Date Temp Pulse Resp B/P (MAP) Pulse Ox O2 O2 Flow FiO2 Time Delivery Rate 11/10/18 98.7 85 18 115/59 95 07:47 (77) 11/09/18 Room Air 14:50 Intake and Output 11/09/18 11/09/18 11/10/18 1414:59 22:59 06:59 IntakeIntake Total 60 ml 560 ml 500 ml BalanceBalance 60 ml 560 ml 500 ml Results Results 24hrs Laboratory Tests Test 11/10/18 05:31 White Blood Count 11.6 H Red Blood Count 3.90 L Hemoglobin 11.5 L Hematocrit 33.1 L Mean Corpuscular Volume 84.9 Mean Corpuscular Hemoglobin 29.5 Mean Corpuscular Hemoglobin Concent 34.7 Red Cell Distribution Width 13.2 Platelet Count 227 Mean Platelet Volume 9.9 Immature Granulocytes % 0.400 Neutrophils % 88.4 H Lymphocytes % 6.7 L Monocytes % 4.1 Eosinophils % 0.2 Basophils % 0.2 Nucleated Red Blood Cells % 0.0 Immature Granulocytes # 0.050 H Neutrophils # 10.2 H Lymphocytes # 0.8 Monocytes # 0.5 Eosinophils # 0.0 Basophils # 0.0 Nucleated Red Blood Cells # 0.0 Sodium Level 140 Potassium Level 4.1 Chloride Level 106 Carbon Dioxide Level 26 Anion Gap 8 Blood Urea Nitrogen 10 Creatinine 0.69 Est Glomerular Filtrat Rate mL/min > 60 Glucose Level 128 Calcium Level 8.9 Medications Medication Current Medications IV Flush (NS 3 ml) 3 ml PER PROTOCOL IV ; Start 11/08/18 at 15:00 Ondansetron HCl (Zofran Inj) 4 mg Q6H PRN IV NAUSEA/VOMITING; Start 11/08/18 at 15:00 Acetaminophen (Tylenol Tab) 650 mg Q6H PRN PO .PAIN 1-3 OR TEMP Last administered on 11/09/18at 20:34; Admin Dose 650 MG; Start 11/08/18 at 15:00 Acetaminophen/ Hydrocodone Bitart ([place] (5/325)) 1 tab Q6H PRN PO .MOD PAIN 4- 6; Start 11/08/18 at 15:00 Morphine Sulfate (morphine) 2 mg Q4H PRN IV .SEVERE PAIN 7-10; Start 11/08/18 at 15:00 Docusate Sodium (Colace) 100 mg Q12H PRN PO .CONSTIPATION; Start 11/08/18 at 15:00 Magnesium Hydroxide (Milk Of Mag) 30 ml DAILY PRN PO .CONSTIPATION; Start 11/08/18 at 15:00 Lorazepam (Ativan) 0.5 mg Q6H PRN IV ANXIETY; Start 11/08/18 at 15:00 Albuterol/ Ipratropium (Duoneb) 3 ml Q4H RESP THERAPY PRN HHN SHORTNESS OF BREATH; Start 11/08/18 at 15:00 Nitroglycerin (Nitroglycerin (Sl Tab) 0.4 Mg) 1 tab Q5M PRN SL ANGINA; Start 11/08/18 at 15:00 Cefepime HCl 50 ml @ 100 mls/hr Q24H IVPB Last administered on 11/09/18at 20:27; Admin Dose 100 MLS/HR; Start 11/08/18 at 21:00 Heparin Sodium (Porcine) (Heparin (5000 Units/1ml)) 5,000 unit BID SC Last administered on 11/10/18at 09:35; Admin Dose 5,000 UNIT; Start 11/08/18 at 21:00 Miscellaneous Information Patients own medicat... BID@10,16 XX ; Start 11/09/18 at 10:00 Sodium Chloride 1,000 ml @ 100 mls/hr Q10H IV Last administered on 11/10/18 09:38; Admin Dose 100 MLS/HR; Start 11/09/18 at 15:30 FABIENNE VILLAVICENCIO Nov 10, 2018 11:52
[2018-11-10 13:48] VITALS: BP 122/62; PULSE 84; RESP 18
[2018-11-10 20:00] VITALS: BP 123/64; PULSE 62; RESP 18
[2018-11-10] MEDS: CEFEPIME 1GM/50 ML (PMX) 50 ML IVPB SCH (20:10)
[2018-11-11 02:00] VITALS: BP 120/58; PULSE 79; RESP 17
[2018-11-11] MEDS: SOD CHLORIDE 0.45% 1,000 ML IV SCH (04:44)
[2018-11-11 07:48] VITALS: BP 104/55; PULSE 77; RESP 16
[2018-11-11] MEDS: HEPARIN 5,000 UNIT/1 ML VIAL SC SCH (08:52)
[2018-11-11 14:49] VITALS: BP 124/58; PULSE 83; RESP 16
--- NOTE | 2018-11-11 15:07 | PDOCDIS ---
Discharge Instructions CONDITION [id number] Patient Condition: [id number] Stable FOLLOW UP/APPOINTMENTS Follow-up Plan Please take your medications as prescribed, follow-up with your surgery doctor in the clinic in the 3 to 5 days for your drain removal and staple removal. FABIENNE VILLAVICENCIO Nov 11, 2018 15:07
[2018-11-11] MEDS ORDERED: LEVO750T8 PO (15:08)
[2018-11-11] MEDS ORDERED: HYDR-3601 PO (15:08)
--- NOTE | 2018-11-11 15:12 | DS ---
Date/Time of Note Date/Time of Note DATE: 11/11/18 TIME: 15:11 Discharge Summary Admission/Discharge Info Admit Date/Time Nov 08, 2018 at 14:26 Discharge Date/Time Discharge Diagnosis #Dizziness and fevers: Slowly improving but fever still present in the last 24 hours. Admitting chest x-ray showed signs of right-sided infiltrates, secondary to pneumonia. White blood cell count still elevated but trending down. -Continue IV fluids, broad-spectrum antibiotics, Tylenol PRN pain fevers. -Follow-up final culture results #Recent cholecystectomy: Performed 1 week ago in [place]. No present issues, CHARLENE drain still in place. -Monitor, patient will need to reschedule her outpatient appointment to have the stella and CHARLENE drain removed, she should follow-up with them for care of this CHARLENE drain. Patient Condition: Stable Hx of Present Illness 62-year-old female history of gallstones with a history of laparoscopic cholecystectomy November 02 in [place], who is been having dizziness and fever symptoms. Patient states his symptoms began last night. She is had some subjective fevers at home and also some chills. No upper or lower GI bleeding, nausea vomiting, diarrhea constipation, chest pain. Again apparently she had a laparoscopic cholecystectomy performed at outside hospital on November 02, 2018, she does not remember the name of the surgeon who performed the surgery. She has not had a follow-up appointment at that time. She denies any significant drainage or pus or pain in the abdominal area or around the incision sites. However when she came in today she was found temperature 101.5. Chest x-ray was performed that showed signs of right-sided infiltrate, possible pneumonia and she is been given antibiotics in the ER today. Hospital Course Patient was admitted and placed on antibiotic treatment for the upper respiratory infection/pneumonia. Over the course of her hospital stay her fevers slowly subsided and her white count trended down. She was able to ambulate, tolerated p.o. diet. She also had urine culture growing mixed growth. She will be discharged home today previously. She is encouraged to follow-up with her surgeon in the clinic in the next 2 to 4 days to have the stella and drain removed from her prior surgery. She will go home with antibiotics see below for full list of discharge medications. Home Meds Active Scripts Levofloxacin* (Levofloxacin*) 750 Mg Tablet, 750 MG PO DAILY for 5 Days, TAB Prov:FABIENNE VILLAVICENCIO S. 11/11/18 Hydrocodone Bit-Acetaminophen (Hydrocodone Bit-APAP) 5-325MG Tablet, 1 TAB PO Q6H PRN for .MOD PAIN 4-6, #10 TAB Prov:STACY VILLAVICENCIOP S. 11/11/18 Discontinued Scripts Ibuprofen* (Motrin*) 600 Mg Tab, 600 MG PO Q6, #30 TAB Prov:LANA MANE PA-C 10/04/18 Phenol* (Chloraseptic* [place]) 177 Ml [place].pump, 2 SPRAY MT Q2H PRN for SORE THROAT, #1 BOTTLE Prov:LANA MANE PA-C 10/04/18 Fluticasone Propionate (Flonase Allergy Relief) 9.9 Ml [place].susp, 1 SPRAY NASAL BID, #1 BOTTLE TO EACH NOSTRIL Prov:LANA MANE PA-C 10/04/18 Benzonatate* (Benzonatate*) 200 Mg Capsule, 200 MG PO TID PRN for COUGH, #15 CAP Prov:LANA MANE PA-C 10/04/18 Polymyxin B Sulfate-TMP* (Polymyxin B-TMP Eye Drops*) 10 Ml Drops, 1 DROP BOTH EYES QID for 7 Days, #1 BOTTLE Prov:LANA MANE PA-C 10/04/18 Loratadine/Pseudoephedrine (CLARITIN-D 24 HOUR TABLET) 1 Each Tab.er.24h, 1 TAB PO DAILY, #15 TAB Prov:ELPIDIO MACHUCA MD 08/18/18 Fluticasone Propionate (Flonase Allergy Relief) 9.9 Ml [place].susp, 2 SPRAY NASAL DAILY, #1 BOTTLE TO EACH NOSTRIL Prov:ELPIDIO MACHUCA MD 08/18/18 Benzonatate* (Tessalon Perle*) 100 Mg Capsule, 100 MG PO TID, #15 CAP Prov:ELPIDIO MACHUCA MD 08/18/18 Famotidine* (Pepcid*) 20 Mg Tablet, 20 MG PO BID, #60 TAB Prov:ANA HERNANDEZ 06/10/18 Metronidazole* (Flagyl*) 500 Mg Tablet, 500 MG PO Q8 for 10 Days, #30 TAB Prov:ANA HERNANDEZ 06/10/18 Ciprofloxacin Hcl* (Ciprofloxacin Hcl*) 500 Mg Tablet, 500 MG PO BID@ for 10 Days, #20 TAB Prov:ANA HERNANDEZ 06/10/18 Follow-up Plan Please take your medications as prescribed, follow-up with your surgery doctor in the clinic in the 3 to 5 days for your drain removal and staple removal. Primary Care Provider [facility]. Time spent on discharge: > 30 minutes Pending Labs Laboratory Tests Test 11/11/18 05:56 White Blood Count 7.9 10^3/ul (4.8-10.8) Red Blood Count 3.70 10^6/ul (4.20-5.40) Hemoglobin 10.6 g/dl (12.0-16.0) Hematocrit 30.5 % (37.0-47.0) Mean Corpuscular Volume 82.4 fl (82.0-101.0) Mean Corpuscular Hemoglobin 28.6 pg (29.0-33.0) Mean Corpuscular Hemoglobin Concent 34.8 g/dl (32.0-37.0) Red Cell Distribution Width 13.2 % (11.5-14.5) Platelet Count 237 10^3/UL (140-415) Mean Platelet Volume 9.3 fl (7.4-10.4) Immature Granulocytes % 0.400 % (0.001-0.429) Neutrophils % 83.1 % (39.0-77.0) Lymphocytes % 10.1 % (15.0-51.0) Monocytes % 5.8 % (0.0-11.0) Eosinophils % 0.5 % (0.0-7.0) Basophils % 0.1 % (0.0-2.0) Nucleated Red Blood Cells % 0.0 /100WBC (0.0-0.0) Immature Granulocytes # 0.030 10^3/ul (0.0-0.031) Neutrophils # 6.6 10^3/ul (1.6-7.5) Lymphocytes # 0.8 10^3/ul (0.8-2.9) Monocytes # 0.5 10^3/ul (0.3-0.9) Eosinophils # 0.0 10^3/ul (0.0-0.5) Basophils # 0.0 10^3/ul (0.0-0.1) Nucleated Red Blood Cells # 0.0 10^3/ul (0.0-0.0) Sodium Level 140 mmol/L (135-144) Potassium Level 4.1 mmol/L (3.5-5.1) Chloride Level 108 mmol/L (97-110) Carbon Dioxide Level 24 mmol/L (21-31) Anion Gap 8 (5-13) Blood Urea Nitrogen 10 mg/dl (7-20) Creatinine 0.65 mg/dl (0.44-1.00) Est Glomerular Filtrat Rate mL/min > 60 mL/min (>60) Glucose Level 116 mg/dl (70-220) Calcium Level 8.9 mg/dl (8.4-10.2) FABIENNE VILLAVICENCIO Nov 11, 2018 15:12
== END 2018-11-11 16:49 | disposition home or self-care (01) | DRG 195 ==
LOC: E/R 11:56 → PP2 14:26 → EDBEDREQSVC 17:38 → EDBEDREQ 17:44 → PP2 19:16
PROVIDERS: ADMIT Hospitalist; ATTEND Hospitalist
DX: J18.9 Pneumonia, unspecified organism (principal); Z98.890 Other specified postprocedural states; R42 Dizziness and giddiness
CPT/HCPCS: 36415; 71045; 74176; 80048; 80053; 80061; 80076; 81001; 83036; 83605; 83690; 84439; 84443; 84484; 85025; 85610; 85730; 87086; 93005; 96374; 96375; J0456; J0692; J0696; J1644; J2405; J7030